=== PATIENT | female | born 1985 | race Caucasian/White ===

== ENCOUNTER 2021-07-22 10:57 | Outpatient (CLI) | payer SELFPAY ==
[2021-07-23 00:15] LABS: SARS-CoV-2 PCR by NAA Not Detected (NotDetected)
== END 2021-07-22 10:58 | disposition home or self-care (01) ==
LOC: CSHLAB 10:57
PROVIDERS: ATTEND Obstetrics & Gynecology
DX: Z20.822 Contact with and (suspected) exposure to COVID-19 (principal)
CPT/HCPCS: U0003; U0005

== ENCOUNTER 2021-07-25 05:26 | Inpatient (IN) | payer SELFPAY ==
[2021-07-25] MEDS ORDERED: Ondansetron PF 4 MG/2 ML Vial IVP PRN ×2 (05:42→07:22)
[2021-07-25] MEDS ORDERED: hydrALAZINE 20 MG/ML VIAL SLOW IVP PRN ×2 (05:42→07:20)
[2021-07-25] MEDS ORDERED: Bicitra 30 ML UDCUP PO PRN (05:42)
[2021-07-25] MEDS ORDERED: CEFAZOLIN 2 GM in Premix Bag 1 BAG IVPB SCH (05:42)
[2021-07-25] MEDS ORDERED: Promethazine HCl 25 MG/ML VIAL IM PRN ×2 (05:42→07:22)
[2021-07-25] MEDS ORDERED: Famotidine/PF 20 mg/2ml Vial SLOW IVP PRN (05:42)
[2021-07-25 06:01] VITALS: BMI 21.9
[2021-07-25] MEDS: Lactated Ringer's 1,000 ML IV SCH ×2 (06:10→07:19)
[2021-07-25 06:56] LABS: Hemoglobin 12.2 g/dL (12.0-15.5); Mean Corpuscular HGB CONC 34.1 g/dL (32.0-36.0); Mean Corpuscular Hemoglobin 29.8 pg (27.0-33.0); Mean Corpuscular Volume 87.5 fl (81.6-98.3); Mean Platelet Volume 11.1 fl (7.4-10.4); Platelet Count 147 10x3/uL (150-450); RBC Distribution Width 14.5 % (11.5-14.5); Red Blood Cell (RBC) Count 4.09 10x6/uL (3.90-5.03); White Blood Cell (WBC) Count 8.3 10x3/uL (3.5-10.5)
[2021-07-25] MEDS ORDERED: Morphine PF 10 MG/10 ML VIAL ONE (07:00)
[2021-07-25] MEDS ORDERED: ePHEDrine Sulfate 50 MG/10 ML VIAL ONE (07:00)
[2021-07-25] MEDS ORDERED: Oxytocin 10 UNITS/ML VIAL ONE (07:01)
[2021-07-25] MEDS ORDERED: Ondansetron PF 4 MG/2 ML Vial ONE ×2 (07:01→07:40)
[2021-07-25] MEDS ORDERED: Dexamethasone 4 mg/ml Vial ONE (07:01)
[2021-07-25] MEDS ORDERED: Ketorolac Tromethamine 30 MG/ML VIAL ONE (07:01)
[2021-07-25] MEDS ORDERED: Phenylephrine 40 MG/NS 250 ML 250 ML ONE (07:01)
[2021-07-25] MEDS ORDERED: Lanolin Ointment 7 GM TUBE TOP PRN (07:20)
[2021-07-25] MEDS ORDERED: Misoprostol 200 MCG TAB PR PRN (07:20)
[2021-07-25] MEDS ORDERED: Bisacodyl 10 MG SUPP PR PRN (07:20)
[2021-07-25] MEDS ORDERED: Acetaminophen 325 MG TAB PO PRN (07:20)
[2021-07-25] MEDS ORDERED: Meperidine HCl/PF 25 MG/ML VIAL SLOW IVP PRN (07:22)
[2021-07-25] MEDS ORDERED: Naloxone HCl 0.4 mg/ml Vial IVP PRN ×2 (07:22)
[2021-07-25] MEDS ORDERED: Naloxone HCl 0.4 mg/ml Vial IV PRN (07:22)
[2021-07-25] MEDS ORDERED: Ondansetron HCl/PF 4 MG/2 ML Vial IVP PRN (07:22)
[2021-07-25] MEDS ORDERED: Ketorolac Tromethamine 30 MG/ML VIAL IVP PRN (07:22)
[2021-07-25] MEDS ORDERED: Hydrocerin (Eucerin) Cream 120 gm Jar TOP PRN (07:22)
[2021-07-25] MEDS ORDERED: Fentanyl 100 MCG/2 ML VIAL SLOW IVP PRN (07:22)
[2021-07-25] MEDS ORDERED: Promethazine HCl 25 MG SUPP PR PRN (07:22)
[2021-07-25] MEDS ORDERED: diphenhydrAMINE 50 MG/ML VIAL IVP PRN (07:22)
[2021-07-25 07:24] LABS: Syphilis Antibody Nonreactive (Nonreactive); Syphilis Antibody Index 0.05 S/CO (<1.00 Non-Reactive)
[2021-07-25 07:25] LABS: Hep B Surf Ag Non-Reactive S/CO (NonReactive)
[2021-07-25] MEDS ORDERED: Communication Order-Pharmacy FS SCH (07:30)
[2021-07-25] MEDS ORDERED: Ketorolac Tromethamine 30 MG/ML VIAL IVP SCH (07:30)
[2021-07-25] MEDS ORDERED: NS w/ Oxytocin 30 units 500 ML ONE (08:53)
[2021-07-25 13:53] LABS: HBSAg Index 0.18 S/CO (0-0.99)
[2021-07-25] MEDS: Prenatal Vitamin 1 TAB PO SCH (14:28)
[2021-07-25] MEDS: HYDROcodone/Acetaminophen 5/325 mg Tablet PO PRN ×2 (19:28→23:13)
[2021-07-25] MEDS ORDERED: Zolpidem Tartrate 5 MG TAB PO PRN (19:30)
[2021-07-25] MEDS ORDERED: HYDROcodone/Acetaminophen 5/325 mg Tablet PO PRN (19:30)
[2021-07-25] MEDS: diphenhydrAMINE 25 MG CAP PO PRN (23:14)
[2021-07-26] MEDS: diphenhydrAMINE 25 MG CAP PO PRN (03:20)
[2021-07-26] MEDS: HYDROcodone/Acetaminophen 5/325 mg Tablet PO PRN ×5 (03:21→21:07)
[2021-07-26 05:27] LABS: Hemoglobin 10.3 g/dL (12.0-15.5); Mean Corpuscular HGB CONC 33.9 g/dL (32.0-36.0); Mean Corpuscular Hemoglobin 30.3 pg (27.0-33.0); Mean Corpuscular Volume 89.4 fl (81.6-98.3); Mean Platelet Volume 11.4 fl (7.4-10.4); Platelet Count 136 10x3/uL (150-450); RBC Distribution Width 14.6 % (11.5-14.5)
[2021-07-26] MEDS ORDERED: Ibuprofen 800 MG TAB PO SCH (06:00)
[2021-07-26] MEDS ORDERED: Boostrix 0.5 ML (Tdap) VIAL IM ONE (07:20)
[2021-07-26] MEDS: Prenatal Vitamin 1 TAB PO SCH (07:23)
[2021-07-26] MEDS: Ibuprofen 800 MG TAB PO PRN ×2 (13:56→21:06)
[2021-07-26] MEDS: Simethicone Chewable 80 MG TAB PO PRN ×2 (13:59→21:06)
[2021-07-26] MEDS: Docusate Calcium (SURFAK) 240 MG CAP PO SCH ×2 (14:00→21:06)
[2021-07-27] MEDS: HYDROcodone/Acetaminophen 5/325 mg Tablet PO PRN ×3 (01:32→10:02)
[2021-07-27] MEDS: Simethicone Chewable 80 MG TAB PO PRN (05:32)
[2021-07-27] MEDS: Ibuprofen 800 MG TAB PO PRN (05:33)
[2021-07-27 07:34] VITALS: BP 120/80; TEMP 97.9
[2021-07-27] MEDS: Docusate Calcium (SURFAK) 240 MG CAP PO SCH (10:00)
[2021-07-27] MEDS: Prenatal Vitamin 1 TAB PO SCH (10:00)
== END 2021-07-27 11:15 | disposition home or self-care (01) | DRG 788 ==
LOC: CSHLD 05:26 → CSHPP 13:48
PROVIDERS: ADMIT Obstetrics & Gynecology; ATTEND Obstetrics & Gynecology
PROC: 10D00Z1 Extraction of Products of Conception, Low, Open Approach (ICD-10-PCS; principal; 2021-07-25)
DX: O34.211 Maternal care for low transverse scar from previous cesarean delivery (principal); Z3A.39 39 weeks gestation of pregnancy; Z37.0 Single live birth; O34.13 Maternal care for benign tumor of corpus uteri, third trimester; D25.9 Leiomyoma of uterus, unspecified
CPT/HCPCS: 36415; 85027; 86780; 86850; 86900; 86901; 87340; J0690; J1100; J1885; J2274; J2405; J2550; J2590; J7120